=== PATIENT | female | born 1975 | race Caucasian/White ===

== ENCOUNTER 2019-12-25 14:48 | Inpatient (IN) | payer OTHER ==
[~2019-12-25] VITALS: Ht 162.6 cm; Wt 94.8 kg
--- NOTE | 2019-12-25 14:25 | NUR ---
HARP MAKER ADMITTING NOTES RECEIVED PATIENT IN STABLE CONDITION, TRANSFERED FROM [facility] D/T POST OP COMPLICATIONS AND SEVERE ANEMIA. PATIENT ON RA WITH O2 SAT 98-100%. NO SOB, NO ACUTE RESPIRATORY DISTRESS NOTED. BP: 108/71 HR: 77 TEMP: 98.3 RESP: 20. PT WITH ABD BINDER S/P TUMMY TUCK /LIPO, CLEAN AND INTACT, WITH BILATERAL URVASHI DRAINS LT: 45 CC AND RT: 25. SOME NON PITTING SWELLING TO BILATERAL FEET NOTED, IV TO LT AC #20G RUNNING WITH D5 1/2 NS @75ML/HR. ADMITTING ORDERS PLACED BY DR. CANO, PT SEEN BY DR. BIRD AND DR. RAMIREZ. PER DR. RAMIREZ ORDERS PLACED FOR VITAMIN K 10MG SQ ONCE, PROTONIX 40 MG QD. PT OK TO HAVE REGULAR DIET. ORIENTATION TO ROOM GIVEN.
[2019-12-25 16:00] VITALS: BP 108/71
[2019-12-25 16:27] LABS: BASOPHILS % (AUTO) 0.6 % (0.0-2.0); EOSINOPHILS % (AUTO) 0.6 % (0.0-6.0); HEMATOCRIT 26 % (33-45); HEMOGLOBIN 8.6 g/dL (11.5-14.8); LYMPHOCYTES # (AUTO) 1.9 /CMM (0.8-4.8); LYMPHOCYTES % (AUTO) 35.2 % (20.0-44.0); MEAN CORPUSCULAR HGB CONC 33 g/dl (31.0-36.0); MEAN CORPUSCULAR VOLUME 83 fL (82-100); MONOCYTES # (AUTO) 0.6 /CMM (0.1-1.30); MONOCYTES % (AUTO) 11.7 % (2.0-12.0); NEUTROPHILS # (AUTO) 2.7 /CMM (1.8-8.9); NEUTROPHILS % (AUTO) 51.9 % (43.0-81.0); PLATELET COUNT (AUTO) 181 /CMM (150-450); RED BLOOD CELL COUNT(AUTO) 3.11 MIL/uL (4.0-5.2); WHITE BLOOD COUNT (AUTO) 5.3 K/uL (4.3-11.0)
[2019-12-25] MEDS ORDERED: ZOLPIDEM TARTRATE 5 MG TABLET PO PRN (16:30)
[2019-12-25] MEDS ORDERED: ACETAMINOPHEN 325 MG TABLET PO PRN (16:30)
[2019-12-25] MEDS ORDERED: MAGNESIUM HYDROXIDE 30 ML UDC PO PRN (16:30)
[2019-12-25] MEDS ORDERED: Z GUARD REMEDY 2 OZ OINT TP PRN (16:30)
[2019-12-25] MEDS ORDERED: ONDANSETRON HCL/PF 4 MG/2 ML VIAL IVP PRN (16:30)
[2019-12-25] MEDS ORDERED: MAG HYDROX/AL HYDROX/SIMETH 30 ML UDC PO PRN (16:30)
[2019-12-25] MEDS: MORPHINE SULFATE INJ 2 MG/ML DISP.SYRIN IV PRN ×2 (16:42→20:12)
[2019-12-25 16:50] LABS: CALCIUM, SERUM 7.3 mg/dL (8.5-10.1); CREATININE 0.7 mg/dL (0.6-1.3); POTASSIUM 3.5 mmol/L (3.5-5.1)
[2019-12-25 16:56] LABS: ALBUMIN 2.2 g/dL (3.4-5.0); BILIRUBIN,TOTAL 0.6 mg/dL (0.2-1.0); TOTAL PROTEIN, SERUM 5.2 g/dL (6.4-8.2)
[2019-12-25] MEDS: IV D5/0.45 NACL 1,000 ML IV PRN (17:28)
[2019-12-25] MEDS ORDERED: PHYTONADIONE INJ 10 MG/1 ML AMPUL SQ SCH (17:30)
[2019-12-25] MEDS ORDERED: PANTOPRAZOLE 40 MG TABLET.DR PO SCH (17:30)
--- NOTE | 2019-12-25 18:39 | NUR ---
HEALTH EVALUATOR CLOSING NOTES PATIENT RESTING IN BED COMFORTABLY, A/O X4, ON RA, WITH NO C/O SOB NOTED, NO ACUTE RESPIRATORY DISTRESS NOTED. C/O PAIN 10/ TO SURGICAL AREA, MORPHINE 2 MG GIVEN IV. ALL MD ORDERS ADMINISTERED. IV TO LT AC #20G PATENT AND INTACT RUNNING WITH D5 1/2 NS @75 ML. BED AT LOWEST POSITION, LOCKED WITH SIDE RAILS UP X2. WILL ENDORSE TO ONCOMING SHIFT.
--- NOTE | 2019-12-25 19:30 | NUR ---
Opening Notes: Report received from morning RN. Patient alert, awake, and oriented x4. Patient able to make needs known. Patient on telemetry, sinus rhythm. No s/s of distress. Patient with left AC IV, 20 g,on D5 1/2 NS at 75 ml/hr. Patient with wound on abdominal area, s/p tummy tuck. 20:10 Patient with c/o pain on lower abdomen, painscale 12/05, PRN pain medication given as ordered, tolerated well. URVASHI drain collected and measured, left a message to Dr. Seay at 20:15 to notify him, awaiting for call back. 20:42 Patient reassessed for pain, pain reduced as stated by patient. 21:30 Patient noted with eyes closed, resting comfortably but arousable. Fall precautions observed. Call light within easy reach.
[2019-12-25 20:08] VITALS: BP 118/40
--- NOTE | 2019-12-25 22:15 | NUR ---
Spoke with Dr. Dawood MD made aware of patient's condition including URVASHI drain. MD with new orders for Ativan 1 mg Q12H, increase Morphine to 4 mg Q3H PRN, and CBC, BMP, Mg, and phos in am, and give Ativan when patient wakes up, order noted, and carried out.
[2019-12-25] MEDS: LORAZEPAM 1 MG TABLET PO SCH (22:39)
[2019-12-25 23:45] VITALS: BP 130/78
[2019-12-26] MEDS ORDERED: PIPERACILLIN /TAZOBACTAM 3.375 G VIAL IV ONE ×2 (00:39→05:45)
[2019-12-26] MEDS: ZOSYN IVPB 3.375 G in IV D5W 50ml IV SCH ×2 (01:02→06:39)
--- NOTE | 2019-12-26 04:00 | NUR ---
Addendum: URVASHI drain collected. Patient noted with 20 ml on right URVASHI drain and 60 ml on left.
[2019-12-26] MEDS: MORPHINE SULFATE INJ 4 MG/ML DISP.SYRIN IV PRN ×5 (04:33→23:17)
--- NOTE | 2019-12-26 04:33 | NUR ---
Patient with c/o pain on lower abdomen, pain scale of 10/10 per patient, PRN morphine 4 mg IV push given as ordered by MD.
[2019-12-26] MEDS: IV D5/0.45 NACL 1,000 ML IV PRN ×2 (04:40→20:01)
--- NOTE | 2019-12-26 04:53 | NUR ---
MRSA nares specimen collected, spoke with Pernell from lab, per Pernell, he will pick it up.
[2019-12-26 05:01] VITALS: BP 110/67
--- NOTE | 2019-12-26 05:03 | NUR ---
Patient reassessed for pain. Patient's eyes closed, resting comfortably, easily arousable, no facial grimacing or moaning noted.
--- NOTE | 2019-12-26 06:30 | NUR ---
Closing Notes: Patient alert, and oriented x4. Eyes closed, resting comfortably but arousable. No s/s of distress, or discomfort noted, no c/o pain at this time. VS WNL. Patient assisted with ADLs. Patient kept clean and dry. Linens changed, good pericare provided. Needs anticipated and attended. Bed locked and in lowest position. Call light within reach. Will endorse continuity of care to next shift.
[2019-12-26 06:55] LABS: BASOPHILS % (AUTO) 0.7 % (0.0-2.0); EOSINOPHILS % (AUTO) 1.1 % (0.0-6.0); HEMATOCRIT 24 % (33-45); HEMOGLOBIN 7.9 g/dL (11.5-14.8); LYMPHOCYTES # (AUTO) 1.3 /CMM (0.8-4.8); MEAN CORPUSCULAR HGB CONC 34 g/dl (31.0-36.0); MEAN CORPUSCULAR VOLUME 84 fL (82-100); MONOCYTES # (AUTO) 0.5 /CMM (0.1-1.30); MONOCYTES % (AUTO) 10.2 % (2.0-12.0); NEUTROPHILS # (AUTO) 3.4 /CMM (1.8-8.9); PLATELET COUNT (AUTO) 174 /CMM (150-450); RED BLOOD CELL COUNT(AUTO) 2.78 MIL/uL (4.0-5.2); WHITE BLOOD COUNT (AUTO) 5.3 K/uL (4.3-11.0)
[2019-12-26 07:13] LABS: CALCIUM, SERUM 6.8 mg/dL (8.5-10.1); CREATININE 0.6 mg/dL (0.6-1.3); MAGNESIUM 1.9 mg/dL (1.8-2.4); PHOSPHORUS 2.4 mg/dL (2.5-4.9); POTASSIUM 3.9 mmol/L (3.5-5.1); THYROID STIMULATING HORMONE 1.986 uIU/mL (0.358-3.74)
--- NOTE | 2019-12-26 07:20 | NUR ---
PULVERIZER TENDER NOTES RECEIVED PATIENT IN BED ASLEEP, AROUSABLE TO VERBAL AND TACTILE STIMULI. HOB ELEVATED. ON ROOM AIR WELL WITHOUT SOB NOTED WITH SPO2 OF 100%. ALERT AND ORIENTED X4. ON TELE MONITORING SR: 84. LEFT AC #20 INTACT AND PATENT INFUSING D5 1/2 NS AT 75ML/HR PHYLLIS WELL. BED IN LOWEST POSITION, LOCKED. BED ALARM ON. CALL LIGHT WITHIN REACH. ABLE TO VERBALIZE NEEDS.
[2019-12-26 08:00] VITALS: BP 103/63
[2019-12-26] MEDS: PANTOPRAZOLE 40 MG VIAL IV SCH (08:18)
[2019-12-26] MEDS: LORAZEPAM 1 MG TABLET PO SCH ×2 (08:19→21:43)
[2019-12-26] MEDS: HYDROCODONE/APAP 5/325MG TABLET PO PRN ×2 (11:08→20:45)
[2019-12-26] MEDS: PIPERACILLIN /TAZOBACTAM 3.375 G in IV D5W 100 ML IV SCH ×2 (12:08→20:00)
[2019-12-26] MEDS ORDERED: NEUTRA PHOS 1 POWD.PACKET PO ONE (13:30)
[2019-12-26 16:00] VITALS: BP 113/74
--- NOTE | 2019-12-26 19:31 | NUR ---
LAWYER PROBATE NOTES PATIENT RESTING COMFORTABLY IN BED. HOB ELEVATED. ON ROOM AIR WELL WITHOUT S/S OF RESPIRATORY DISTRESS. ALERT AND ORIENTED X4. LEFT AC #20 INTACT AND PATENT INFUSING D5 1/2 NS AT 75ML/HR PHYLLIS WELL. PATIENT VOIDING FREELY WITHOUT DIFFICULTY. ABLE TO AMBULATE TO THE BATHROOM WITH STEADY GAIT. NO BM NOTED DURING THE SHIFT BUT PATIENT HAS BEEN PASSING GAS. BED IN LOWEST POSITION, LOCKED. BED ALARM ON. CALL LIGHT WITHIN REACH. ABLE TO VERBALIZE NEEDS. IN NO APPARENT DISTRESS.
--- NOTE | 2019-12-26 19:32 | NUR ---
PLATFORM LOADER OPENING NOTES PATIENT AWAKE IN BED. A/OX4. ON RA; NO C/O SOB; BREATHING IS EVEN AND UNLABORED. PER DAY SHIFT RN, PRN MORPHINE 4MG GIVEN AT 1845. TELE MONITOR READING SINUS TACH, HEART RATE 106. IV PRESENT ON LEFT AC, SIZE 20, INTACT & PATENT WITH D51/2 NS RUNNING AT 75 ML/HR. LOWER ABDOMINAL DRESSING DRY AND INTACT WITH ABDOMINAL BINDER; NO BLEEDING NOTED. BILATERAL JPEG DRAINS PRESENT AND DRAINING WELL; SEROUS FLUID PRESENT. SAFETY MEASURES IN PLACE AND PATIENT'S NEEDS MET. BED LOCKED, HOB ELEVATED, SIDE RAILS X2, CALL LIGHT WITHIN REACH. WILL CONTINUE TO MONITOR.
[2019-12-26 20:00] VITALS: BP 116/73
[2019-12-26 21:41] VITALS: BP 122/69
[2019-12-27] VITALS (13 sets, daily range): BP systolic 102–124; BP diastolic 57–77
[2019-12-27] MEDS: HYDROCODONE/APAP 5/325MG TABLET PO PRN ×4 (01:43→16:18)
[2019-12-27] MEDS: MORPHINE SULFATE INJ 4 MG/ML DISP.SYRIN IV PRN ×2 (03:20→07:48)
[2019-12-27] MEDS: PIPERACILLIN /TAZOBACTAM 3.375 G in IV D5W 100 ML IV SCH ×3 (04:07→19:40)
[2019-12-27 06:25] LABS: BASOPHILS % (AUTO) 0.9 % (0.0-2.0); HEMATOCRIT 24 % (33-45); HEMOGLOBIN 7.9 g/dL (11.5-14.8); LYMPHOCYTES # (AUTO) 1.3 /CMM (0.8-4.8); LYMPHOCYTES % (AUTO) 28.5 % (20.0-44.0); MEAN CORPUSCULAR HGB CONC 33 g/dl (31.0-36.0); MEAN CORPUSCULAR VOLUME 84 fL (82-100); MONOCYTES # (AUTO) 0.4 /CMM (0.1-1.30); MONOCYTES % (AUTO) 9.3 % (2.0-12.0); NEUTROPHILS # (AUTO) 2.7 /CMM (1.8-8.9); NEUTROPHILS % (AUTO) 57.3 % (43.0-81.0); PLATELET COUNT (AUTO) 195 /CMM (150-450); RED BLOOD CELL COUNT(AUTO) 2.81 MIL/uL (4.0-5.2); WHITE BLOOD COUNT (AUTO) 4.7 K/uL (4.3-11.0)
[2019-12-27 06:54] LABS: CALCIUM, SERUM 7.7 mg/dL (8.5-10.1); CREATININE 0.6 mg/dL (0.6-1.3); PHOSPHORUS 3.6 mg/dL (2.5-4.9); POTASSIUM 3.3 mmol/L (3.5-5.1)
--- NOTE | 2019-12-27 07:40 | NUR ---
SOLDERER TORCH CLOSING NOTES PATIENT AWAKE IN BED. A/OX4. ON RA; NO C/O SOB; BREATHING IS EVEN AND UNLABORED. NO C/O PAIN. TELE MONITOR READING NSR. IV PRESENT ON LEFT AC, SIZE 20, INTACT & PATENT WITH ZOSYN RUNNING AT 25 ML/HR. LOWER ABDOMINAL DRESSING DRY AND INTACT WITH ABDOMINAL BINDER. BILATERAL JPEG DRAINS PRESENT AND DRAINING WELL; 150 CC OF SANGUINEOUS FLUID EMPTIED DURING SHIFT . SAFETY MEASURES IN PLACE AND PATIENT'S NEEDS MET. BED LOCKED, HOB ELEVATED, SIDE RAILS X2, CALL LIGHT WITHIN REACH. ENDORSED TO DAY SHIFT RN PLAN OF CARE.
--- NOTE | 2019-12-27 07:48 | NUR ---
RN NOTES RECEIVED PATIENT VOMITING, AND WAS COMPLAINING OF ABDOMINAL PAIN 9/10 PER PAIN SCALE. MEDICATION WERE ADMINISTERED EARLIER NOT EFFECTIVE, ADMINISTERING ZOFRAN 4 MG/ML IV PUSH FOR NAUSEA/VOMITING, AND MORPHINE SULFATE 4 MG/ML IV PUSH FOR LOWER ABDOMINAL PAIN 9/10 PER PATIENT REQUEST, V/S TAKEN BP 106/77, 84, R-20. WILL, CONTINUED MONITORING.
[2019-12-27] MEDS ORDERED: POTASSIUM CHLORIDE 20 MEQ TAB.PRT.SR PO ONE ×2 (09:00→13:00)
[2019-12-27] MEDS: LORAZEPAM 1 MG TABLET PO SCH ×2 (10:07→21:15)
[2019-12-27] MEDS: PANTOPRAZOLE 40 MG VIAL IV SCH (10:07)
[2019-12-27] MEDS: HYDROMORPHONE 1 MG/1 ML DISP.SYRIN IV PRN ×3 (10:29→19:40)
--- NOTE | 2019-12-27 10:29 | NUR ---
rn notes administered Dilaudid 1 mg /ml iv push for lower abdominal pain i8/10 per patient request, v/s taken bp 111/60, p-67, r-18.
[2019-12-27] MEDS: IV D5/0.45 NACL 1,000 ML IV PRN (11:43)
--- NOTE | 2019-12-27 11:50 | NUR ---
RN NOTES ADMINISTERED NARCO 5/325 MG PO PRN FOR PAIN 10/05 PER PATIENT REQUEST, V/S TAKEN BP 118/60, P-87, R-18 CONTINUED MONITORING.
--- NOTE | 2019-12-27 14:54 | NUR ---
rn notes administered Dilaudid 1mg/ml iv push for pain 9/10 lower abdomen, per patient request.bp-106/54,p96, r-18.
--- NOTE | 2019-12-27 15:27 | NUR ---
rn notes started one units of blood transfusion at this time, bp 119/57,p-94,t-97.4, r-18, o2-100 room air. patient refused pain at this time. continued monitoring.
--- NOTE | 2019-12-27 15:58 | NUR ---
rn notes patient stable, increased blood 75 ml/hr, no s/s of blood reaction, v/s wnl, continued monitoring.
--- NOTE | 2019-12-27 16:25 | NUR ---
rn notes administered narco 5/325mg po prn for lower abdominal pain post up 11/05 per patient request, v/s taken bp 124/ 76, p-82, increased blood transfusion 125 ml/ hr intact on right FA, no s/s of blood reaction. continued monitoring.
[2019-12-27] MEDS ORDERED: ACETAMINOPHEN 325 MG TABLET PO PRN (17:00)
[2019-12-27] MEDS ORDERED: GABAPENTIN 300 MG CAPSULE PO SCH ×4 (17:00→22:11)
[2019-12-27] MEDS ORDERED: ACETAMINOPHEN 325 MG TABLET PO SCH (17:00)
--- NOTE | 2019-12-27 17:30 | NUR ---
RN NOTES PATIENT STABLE TOLERATED BLOOD TRANSFUSION WELL AT 125 ML/HR INTACT, NO S/O OF REACTION , MEDICATION WERE ADMINISTERED FOR POST UP LOWER ABDOMEN EFFECTIVE, BP 108/68, P-92, T-96.9, R-18, CONTINUED MONITORING.
--- NOTE | 2019-12-27 18:46 | NUR ---
rn notes finished blood transfusion at this time patient refused pain, no s/s of reaction, v/s taken bp -102/57, p-89, r-18, t-97.6, o2-100 room air. URVASHI drainages total is 460 ml both sides . medication were administered for pain effective. patient stable in the bed. call light within to reach. endorsed oncoming nurse follow plan of care.
--- NOTE | 2019-12-27 19:00 | NUR ---
pit furnace melter opening notes received patient in bed awake alert and oriented x4 respirations even and unlabored with equal rise and fall of chest, at this time remains comfortable, delvis drains intact with proper suction, on tele monitoring sr 89, iv site to left ac#20 g intact and patent, no redness,no infiltration present, ivf running as ordered, abdomen dressings remain clean dry and intact, safety precautions rendered, low bed and locked, oriented to call light and kept within reach, all needs attended at this time will continue to monitor and attend to needs.
--- NOTE | 2019-12-27 19:40 | NUR ---
video production intern notes patient complained of pain to abdomen area states 11/05 requested for dilaudid. vs assessed wnl. dilaudid prn given as ordered,will continue to monitor. abd dressing remain clean dry and intact upon assessment. call light kept within reach.
[2019-12-28] VITALS: BP 115/62
[2019-12-28 00:18] VITALS: BP 115/62
[2019-12-28] MEDS: GABAPENTIN 300 MG CAPSULE PO SCH ×2 (00:24→09:37)
[2019-12-28] MEDS: ACETAMINOPHEN 325 MG TABLET PO SCH ×2 (00:24→09:37)
[2019-12-28] MEDS: HYDROMORPHONE 1 MG/1 ML DISP.SYRIN IV PRN ×3 (01:04→12:03)
--- NOTE | 2019-12-28 01:10 | NUR ---
rn clinical quality notes patient complained of pain to abdomen area states 11/05 requested for dilaudid. vs assessed wnl. dilaudid prn given as ordered,will continue to monitor. abd dressing remain clean dry and intact upon assessment. call light kept within reach.
[2019-12-28] MEDS: PIPERACILLIN /TAZOBACTAM 3.375 G in IV D5W 100 ML IV SCH (03:58)
[2019-12-28 04:00] VITALS: BP 123/74
--- NOTE | 2019-12-28 04:22 | NUR ---
management nurse rn notes patient complained of pain to abdomen area states 11/05 requested for dilaudid. vs assessed wnl. dilaudid prn given as ordered,will continue to monitor. abd dressing remain clean dry and intact upon assessment. call light kept within reach.
--- NOTE | 2019-12-28 06:17 | NUR ---
right delvis drain total output 100cc left delvis drain total output 90cc Addendum: 12/28/19 at 0618 by SHREYA SHEN RN Amended: Links added.
--- NOTE | 2019-12-28 06:25 | NUR ---
employee benefits attorney closing notes patient in bed awake alert and oriented x4 respirations even and unlabored with equal rise and fall of chest, at this time remains comfortable, delvis drains intact with proper suction, on tele monitoring sr 90,denies any pain at this time. iv site to left ac#20 g intact and patent, no redness,no infiltration present, ivf running as ordered, abdomen dressings remain clean dry and intact, safety precautions rendered, low bed and locked, call light kept within reach, all needs attended at this time will continue to monitor and endorse to next shift.
[2019-12-28 07:30] LABS: BASOPHILS % (AUTO) 0.9 % (0.0-2.0); EOSINOPHILS % (AUTO) 4.9 % (0.0-6.0); HEMATOCRIT 32 % (33-45); HEMOGLOBIN 10.6 g/dL (11.5-14.8); LYMPHOCYTES # (AUTO) 1.3 /CMM (0.8-4.8); LYMPHOCYTES % (AUTO) 23.7 % (20.0-44.0); MEAN CORPUSCULAR HGB CONC 33 g/dl (31.0-36.0); MEAN CORPUSCULAR VOLUME 86 fL (82-100); MONOCYTES # (AUTO) 0.5 /CMM (0.1-1.30); MONOCYTES % (AUTO) 8.5 % (2.0-12.0); NEUTROPHILS # (AUTO) 3.4 /CMM (1.8-8.9); PLATELET COUNT (AUTO) 268 /CMM (150-450); RED BLOOD CELL COUNT(AUTO) 3.73 MIL/uL (4.0-5.2); WHITE BLOOD COUNT (AUTO) 5.4 K/uL (4.3-11.0)
[2019-12-28 08:00] VITALS: BP 119/71
--- NOTE | 2019-12-28 08:00 | NUR ---
RN NOTES RECEIVED PATIENT IN THE BED A/O X4, STABLE V/S WNL. PATIENT MED COMPLAINT, AMBULATORY SURGICAL INCISION INTACT, DRESSING CHANGED. PATIENT WILL D/C HOME PER SURGEON. CALL LIGHT WITHIN TO REACH. WILL CONTINUED MONITORING.
[2019-12-28 08:11] LABS: CALCIUM, SERUM 8.3 mg/dL (8.5-10.1); CREATININE 0.6 mg/dL (0.6-1.3); MAGNESIUM 2.1 mg/dL (1.8-2.4); PHOSPHORUS 3.3 mg/dL (2.5-4.9); POTASSIUM 3.7 mmol/L (3.5-5.1)
[2019-12-28] MEDS: PANTOPRAZOLE 40 MG VIAL IV SCH (09:37)
[2019-12-28] MEDS: LORAZEPAM 1 MG TABLET PO SCH (09:37)
[2019-12-28] MEDS: HYDROCODONE/APAP 5/325MG TABLET PO PRN (09:41)
--- NOTE | 2019-12-28 09:41 | NUR ---
rn notes administered narco 5/325 mg po prn for lower abdominal pain 11/05 per patient request. v/s taken bp 119/71, p-79.
--- NOTE | 2019-12-28 12:03 | NUR ---
rn notes administered Dilaudid 1 mg /ml iv push for pain 09/04 per patient request , v/s taken bp 118/79,p-68. patient discharge going home self care.
--- NOTE | 2019-12-28 12:40 | NUR ---
EDITOR AT LARGE NOTES PATIENT DISCHARGE AT THIS TIME GOING HOME SELF CARE, STABLE, MEDICATION WERE ADMINISTERED FOR PAIN EFFECTIVE, V/S WNL. MED RECONCILIATION AND DISCHARGE ORDER REVIEWED AND EXPLAINED TO PATIENT. PATIENT VERBALIZED UNDERSTANDING. PATIENT HAS PRESCRIPTION ON HAND GIVEN BY SURGEON. WILL FOLLOW SURGEON ON 5 DAYS. DRESSING CHANGED, PICTURE TAKEN. ESCORTED PATIENT TO THE LOBBY FOR SAFETY. PATIENT CERTIFIED MIDWIFE BY NAME KIERAN PHONE # [phone].
== END 2019-12-28 12:15 | disposition home or self-care (01) | DRG 921 ==
LOC: TELE 14:48
PROVIDERS: ADMIT Student in an Organized Health Care Education/Training Program; ATTEND Student in an Organized Health Care Education/Training Program
PROC: 30233N1 Transfusion of Nonautologous Red Blood Cells into Peripheral Vein, Percutaneous Approach (ICD-10-PCS; principal; 2019-12-27)
DX: L76.21 Postprocedural hemorrhage of skin and subcutaneous tissue following a dermatologic procedure (principal); L76.31 Postprocedural hematoma of skin and subcutaneous tissue following a dermatologic procedure; Y83.8 Other surgical procedures as the cause of abnormal reaction of the patient, or of later complication, without mention of misadventure at the time of the procedure; Y92.89 Other specified places as the place of occurrence of the external cause; D64.9 Anemia, unspecified; D72.829 Elevated white blood cell count, unspecified; E66.9 Obesity, unspecified; Z68.35 Body mass index [BMI] 35.0-35.9, adult; Y82.8 Other medical devices associated with adverse incidents
CPT/HCPCS: 36415; 80048-TC; 80053-TC; 80061-TC; 83735-TC; 84100-TC; 84443-TC; 84703-TC; 85025-TC; 86850-TC; 87081-TC; A6253; A6403; C9113; G0378; J1170; J2270; J2405; J2543; J3430; J3490; J7050; J7060; P9016-BL